=== PATIENT | female | born 1965 | race Caucasian/White ===

== ENCOUNTER 2016-04-29 14:15 | Emergency (ER) | payer OTHER ==
--- NOTE | 2016-04-29 15:33 | DIAGNOSTIC IMAGING REPORT ---
PROCEDURE: CT ABDOMEN/PELVIS W/O CONTRAST INDICATION: Bilateral flank pain and hematuria. TECHNIQUE: Noncontrast axial images were obtained of the entire abdomen and pelvis with sagittal and coronal reformations. COMPARISON: None. FINDINGS: ABDOMEN: No evidence of urinary calculi. No hydronephrosis. Hyperinflation. Lungs are clear. Liver, gallbladder, pancreas, spleen, adrenal glands and abdominal aorta are normal. Severe obstipation. PELVIS: Appendix not identified. Left lower quadrant surgical clips. Hysterectomy. Normal bladder. There is no pelvic mass, inflammatory changes or free fluid. Bones are unremarkable. IMPRESSION: 1. No evidence of urinary calculi or hydronephrosis 2. Severe obstipation 3. Hysterectomy 4. Results discussed with Jyothi Patel All CT scans at this facility use dose modulation, iterative reconstruction, and/or weight-based dosing when appropriate to reduce radiation dose to as low as reasonably achievable.
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
--- NOTE | 2016-04-29 15:55 | ED ORDER SUMMARY ---
..... Patient: CARMELITA UGARTE OrderSheet [facility] VisitID: [id number] [address] [place] [address] 51y, F Registration Date/Time: 04/29/2016 ORDER SHEET Weight: 51.2 kg (stated) Allergies: Haldol, Sulfa Antibiotics, Gluten GENERAL ORDERS: Urine Drug Screen Urgent (14:36 04/29/2016 MWinterer R.N. per protocol) (Ack 14:45 KHoerner) (14:49 MWinterer R.N.) UA-Culture if indicated Urgent (14:36 04/29/2016 MWinterer R.N. per protocol) (Ack 14:45 KHoerner) (14:49 MWinterer R.N.) CT Abd/Pel wo Cont Urgent (14:42 04/29/2016 HBivens A.R.N.P.) (Ack 14:45 oerner) (15:04 MWinterer R.N.) MEDICATION ORDERS: IV FLUIDS: ORDER SHEET NOTES: [Electronically signed by Nanette Prajapati R.N. (16:12 04/29/2016)] [Electronically signed by Jyothi Patel.R.N.P. (16:22 04/29/2016)] [Electronically locked/signed by Nanette Prajapati R.N. (16:12 04/29/2016)]
--- NOTE | 2016-04-29 15:55 | ED ORDER SUMMARY ---
..... Patient: CARMELITA UGARTE OrderSheet [facility] VisitID: [id number] [address] [place] [address] 51y, F Registration Date/Time: 04/29/2016 ORDER SHEET Weight: 51.2 kg (stated) Allergies: Haldol, Sulfa Antibiotics, Gluten GENERAL ORDERS: Urine Drug Screen Urgent (14:36 04/29/2016 MWinterer R.N. per protocol) (Ack 14:45 KHoerner) (14:49 MWinterer R.N.) UA-Culture if indicated Urgent (14:36 04/29/2016 MWinterer R.N. per protocol) (Ack 14:45 KHoerner) (14:49 MWinterer R.N.) CT Abd/Pel wo Cont Urgent (14:42 04/29/2016 HBivens A.R.N.P.) (Ack 14:45 oerner) (15:04 MWinterer R.N.) MEDICATION ORDERS: IV FLUIDS: ORDER SHEET NOTES: [Electronically signed by Nanette Prajapati R.N. (16:12 04/29/2016)] [Electronically signed by Jyothi Patel.R.N.P. (16:22 04/29/2016)] [Electronically locked/signed by Nanette Prajapati R.N. (16:12 04/29/2016)]
--- NOTE | 2016-04-29 15:55 | ED NURSING NOTES ---
Clinical Report - Nurses [facility] [address] [place] [address] 04/29/2016 14:15 Patient: CARMELITA UGARTE TRIAGE Acuity: LEVEL 3. Chief Complaint: RIGHT-SIDED and LEFT-SIDED FLANK PAIN. Alert. No acute distress. SEPSIS SCREEN: Sepsis Screen. Negative (no infection suspected/documented). --14:29 Nanette Prajapati R.N. 14:20 04/29/16. BP: 128/84. HR: 84. RR: 18. O2 saturation: 100% on room air. Temp: 97.8 F (oral). Pain level now: 10/09. --14:29 Nanette Prajapati R.N. Weight: 51.2 kg stated. Height/Length: 66 inches Per Patient. BMI: 18.2. --14:23 Nanette Prajapati R.N. Medications ALPRAZolam Oral. --14:24 Nanette Prajapati R.N. Amphetamine-DEXTROAMPHETAMINE Oral (Tablet 20 mg), 3 x day. --14:24 Nanette Prajapati R.N. Calcium + D Oral. --14:25 Nanette Prajapati R.N. Cranberry-Vitamin C Oral. --14:25 Nanette Prajapati R.N. Diazepam Oral. --14:25 Nanette Prajapati R.N. Fluconazole Oral. --14:25 Nanette Prajapati R.N. Fluticasone Propionate Nasal. --14:25 Nanette Prajapati R.N. Magnesium Oxide Oral. --14:26 Nanette Prajapati R.N. Milk Thistle Oral. --14:26 Nanette Prajapati R.N. Multi Vitamin Daily Oral. --14:26 Nanette Prajapati R.N. Naproxen Oral. --14:26 Nanette Prajapati R.N. OxyCODONE HCl Oral. --14:26 Nanette Prajapati R.N. Sennosides Oral. --14: Nanette Prajapati R.N. Medication/allergy information source: the patient. --14: Nanette Prajapati R.N. Allergies Haldol. --14: Nanette Prajapati R.N. Sulfa Antibiotics. --14: Nanette Prajapati R.N. Gluten. --14: Nanette Prajapati R.N. History Arrived by EMS. Historian: patient. Unaccompanied. Primary physician (Konrad). Onset. (2 months ago). ( Pt reports a bladder infection and flank pain for 2 months.). PAST MEDICAL HX: The patient has had a hysterectomy. SOCIAL HX: Light tobacco smoker (cigarette)- less than 1/2 a pack per day. No alcohol use or drug use. FALL RISK ASSESSMENT: Fall risk assessment completed. No fall risk identified. NUTRITIONAL RISK ASSESSMENT: The nutritional risk assessment revealed no deficiencies. FUNCTIONAL ASSESSMENT: Functional assessment: no impairments noted. LEARNING NEEDS ASSESSMENT: The learning needs assessment revealed no barriers. SKIN INTEGRITY ASSESSMENT: Skin integrity risk assessment completed. No skin integrity risk identified. --14:29 Nanette Prajapati R.N. PROBLEMS: Kidney disease. Meningitis. Bladder Infections. Seizure. --14: Nanette Prajapati R.N. ADDITIONAL SURGERIES: Appendectomy. Brain surgery. Hysterectomy. Kidney surgery. Tonsillectomy. --14: Nanette Prajapati R.N. Assessment GENERAL / NEURO / PSYCH: Alert. Oriented X 4. Appears in no acute distress. July Coma Scale: 15- eyes open spontaneously (4); best verbal response- oriented x 4 (5); best motor response- obeys commands (6). Patient appears calm and cooperative. RESPIRATORY: Respirations not labored. CVS: Capillary refill less than 2 seconds. GI / : Abdomen soft and nontender. SKIN: Mucous membranes are pink. Skin is warm and dry. --14:29 Nanette Prajapati R.N. Interventions ID band on patient. To treatment room. --14: Nanette Prajapati R.N. PHYSICAL ASSESSMENT 14:30 04/29/16. To room via stretcher. GENERAL / NEURO / PSYCH: Alert. Oriented X 4. Appears in no acute distress. HEENT: Mucous membranes are pink. RESPIRATORY: Respirations not labored. CVS: Capillary refill less than 2 seconds. GI / : Abdomen soft and nontender. SKIN: Skin is warm and dry. --14:30 Nanette Prajapati R.N. NURSING PROGRESS NOTES 14:26 04/29/2016 Site #1 started via IV in the right antecubital space with an 20g angiocath, with aseptic technique and good blood return; one attempt. Blood drawn: rainbow set. Labeled in the presence of the patient and sent to the lab. Saline lock flushed with 10 mL saline. --14:31 Nanette Prajapati R.N. 14:30 04/29/16. Patient gowned. Two patient identifiers checked. Call light placed in reach. Side rails up x 1. Bed placed in lowest position. Brakes of bed on. Patient ready for evaluation- chart flagged. --14:30 Nanette Prajapati R.N. 14:37 04/29/16. Checked patient name and birthdate: patient confirmed. Instructions provided to collect clean catch urine and patient verbalized understanding. Clean catch urine collected with return of yellow-colored clear urine; sample sent to lab for urinalysis and drug screen. Specimen labeled in the presence of the patient. --14:37 Nanette Prajapati R.N. 14:49 04/29/16. ( Pt is upset and angry and states to this RN, "I am on the autism spectrum and I am about to lose it. I have had enough of this." This RN explained to pt that she just got here and we are just beginning our work-up. Pt stated "I want to be left alone."). --14:49 Nanette Prajapati R.N. 14:52 04/29/16. Patient walked to CT with tech. (Pt asked if she was willing to do the CT and pt stated she would.). --14:52 Nanette Prajapati R.N. DISPOSITION / DISCHARGE Departure time: 16:05 Apr 29 2016. Condition at departure: unchanged and stable. No learning barriers present. Discharge instructions provided and reviewed with the patient. Patient verbalized understanding. Written instructions provided in [place]. The patient was discharged by the nurse practitioner. She was discharged home. She left the Emergency Department ambulatory. --16:11 Nanette Prajapati R.N. 16:10 04/29/16. BP: deferred. Additional comments: pt refused. --16:11 Nanette Prajapati R.N. 15:57 04/29/2016 Site #1 removed upon discharge. Catheter intact (pt removed her IV site prior to discharge.). --16:12 Nanette Prajpaati R.N. Locked/Released at 04/29/2016 16:12 by Nanette Prajapati R.N.
--- NOTE | 2016-04-29 16:22 | ED MED RECONCILIATION SUMMARY ---
Patient: CARMELITA UGARTE Medication Reconciliation Report [facility] VisitID: [id number] [address] [place] [address] 51y, F Registration Date/Time: 04/29/2016 Weight: 51.2 kg Height/Length: 66 in. BMI: 18.2 ALLERGIES: Gluten, Haldol, Sulfa Antibiotics The patient's Home Medications are listed below: THE FOLLOWING MEDICATIONS NEED TO BE RECONCILED: ALPRAZolam Oral Amphetamine-DEXTROAMPHETAMINE Oral (20 mg), 3 x day Calcium + D Oral Cranberry-Vitamin C Oral Diazepam Oral Fluconazole Oral Fluticasone Propionate Nasal Magnesium Oxide Oral Milk Thistle Oral Multi Vitamin Daily Oral Naproxen Oral OxyCODONE HCl Oral Sennosides Oral The source(s) of the original Home Medication information: patient The following Medications were given to the patient in the Emergency Department: None. The following Medications were prescribed to the patient: None.
--- NOTE | 2016-04-29 16:22 | ED MAR SUMMARY ---
..... Medication Administration Record [facility] [address] [place], [place] [id number] Patient: CARMELITA UGARTE Visit ID: [id number] 51y, F Weight: 51.2 kg Height/Length: 66 in BMI: 18.2 ALLERGIES: Gluten, Sulfa Antibiotics, Haldol
--- NOTE | 2016-04-29 16:22 | ED DISCHARGE INSTRUCTIONS ---
Patient: CARMELITA UGARTE General Instructions [facility] VisitID: [id number] [place] [address] 51y, F Registration Date/Time: 04/29/2016 Acute right and left flank pain Chronic substance abuse- benzodiazepines, narcotics, methamphetamines with intoxication and anxiety. (Obstipation). INSTRUCTIONS Warnings: GENERAL WARNINGS: Return or contact your physician immediately if your condition worsens or changes unexpectedly, if not improving as expected, or if other problems arise. SPECIFICALLY, return if you develop incontinence of urine (loss of bladder control). worsening symptoms. Understanding of the discharge instructions verbalized by patient. Follow-up with: Herberth Roe MD, Urology, , [address] [facility] [place], [id number] Follow up in about three days as needed. Call for an appointment. Summary of care provided to patient. ADDITIONAL INFORMATION Flank Pain[Uncertain Cause] The flank is the area between the upper abdomen and the back. Pain here is often related to the kidneyan infection or a kidney stone. Other causes of flank pain include spinal arthritis, pinched nerve from a disk injury, back muscle strain or spasm. The cause of your flank pain is not certain and further tests may be needed. Home Care: You may use acetaminophen (Tylenol) or ibuprofen (Motrin, Advil) to control pain, unless another medicine was prescribed. [NOTE: If you have chronic liver or kidney disease or ever had a stomach ulcer or GI bleeding, talk with your doctor before using these medicines.] If the cause of your pain is coming from the muscles, ice or heat may give relief. During the first two days after injury, apply an ICE PACK to the painful area for 20 minutes every 2-4 hours. This will reduce swelling and pain. HEAT (hot shower, hot bath or heating pad) works well for muscle spasm. You can start with ice, then switch to heat after two days. Some patients feel best alternating ice and heat treatments. Use the one method that feels the best to you. Follow Up with your doctor or as advised by our staff for further evaluation if your symptoms are not improving over the next few days. Return Promptly or contact your doctor if any of the following occur: Repeated vomiting Fever of 100.4F (38C) or higher, or as directed by your healthcare provider Increasing flank pain Pain that spreads to the front of the abdomen Dizziness, weakness or fainting Blood in your urine Burning with urination or frequent urination Increasing pain in the leg Numbness or weakness in the leg Drug Abuse Use and abuse of such drugs as marijuana, amphetamines (speed, crank), cocaine, heroin or prescription pain medicines (Vicodin, codeine), sedatives and sleeping pills (Valium, Klonopin), PCP, mescaline and LSD may lead to addiction or dependence. Once this occurs, you are at greater risk for any of the following: Craving for the drug and unable to stop using the drug even though you think you want to stop (psychological dependence) Drug withdrawal symptoms if you stop taking the drug (physical dependence) Loss of your job or your family Arrest, conviction and alf sentence for possession of an illegal substance or for driving under the influence of such a substance Accidental injuries to yourself or others while you are under the influence of the drug (in a car or at home). HIV infection (much greater risk if you use IV drugs) Other sexually transmitted diseases (herpes, chlamydia, gonorrhea and others) Severe and fatal infection of the heart valves (if you use IV drugs) Stroke, heart attack, hepatitis B or C, kidney failure from overdose Home Care: Admit you have a drug problem. Ask for help from your family and close friends. Seek professional help. This could be in the form of individual psychotherapy or counseling or an outpatient, inpatient, or residential drug treatment program. Join a self-help group for drug abuse. Avoid friends who abuse drugs themselves or tempt you to continue abusing drugs. Eat a balanced diet and begin a regular exercise program. Follow Up with your doctor or as advised by our staff. Contact one of the resources below for help. National [place] on Alcoholism and Drug Dependence www.ncadd.org 234-986-YPWY Narcotics Anonymous www.na.org 779-218-0073 National Alcohol and Substance Abuse Information Center (for referral to treatment programs) www.addictioncareBetyah.[employer] 397-813-8445 Get Prompt Medical Attention if any of the following occur: Agitation, anxiety, unable to sleep Unintended weight loss (more than 10 to 15 pounds over 3 months) Seizure Chest pain Fever of 100.4F (38C) or higher, or as directed by your healthcare provider Excess drowsiness or inability to be awakened Shortness of breath Slow breathing under 8 breaths per minute Cough with colored sputum Redness, swelling or tenderness at an injection site Opiate Abuse Use and abuse of heroin or prescription pain medicines (Vicodin, codeine) may lead to physical ADDICTION or psychological DEPENDENCE. Once this occurs, you are at greater risk for any of the following: - Craving for the drug and unable to stop using the drug even though you think you want to stop (psychological dependence) - Drug withdrawal symptoms if you stop taking the drug (physical addiction) - Loss of your job or your family - Arrest, conviction and alf sentence for possession of an illegal substance or for driving under the influence of such a substance - Accidental injuries to yourself or others while you are under the influence of the drug (in a car or at home). - HIV infection (much greater risk if you use IV drugs) - Other sexually transmitted diseases (Herpes, chlamydia, gonorrhea and others) - Severe and fatal infection of the heart valves (if you use IV drugs) - Stroke, heart attack, hepatitis B or C, kidney failure - from overdose Home Care: 1) Admit you have a drug problem. Ask for help from your family and close friends. 2) Seek professional help. This could be individual psychotherapy, counseling, or a drug treatment program (outpatient or residential). 3) Join a self-help group for drug abuse. 4) Avoid friends who abuse drugs themselves or tempt you to continue your habit 5) Eat a balanced diet and begin a regular exercise program. Follow Up with your doctor or as advised by our staff. Contact one of the resources below for help. National [place] on Alcoholism and Drug Dependence, www.ncadd.org 523-881-PNZC Narcotics Anonymous (check your phone book for a local listing or call 925-359-4855) www.na.org National Alcohol and Substance Abuse Information Center (for referral to treatment programs) Www.[employer] 935-571-8770 Get Prompt Medical Attention if any of the following occur: -- Symptoms of withdrawal (agitation, anxiety, trembling, sweats, diarrhea, unable to sleep) -- Chest pain -- Unexplained fever over 100.4 F (38.0 C) -- Excessive drowsiness or inability to be awakened -- Slow breathing under 8 breaths per minute -- Shortness of breath or cough with colored sputum -- Redness, swelling or tenderness at an injection site You have been given the following additional information: Flank Pain, Uncertain Cause Drug Abuse Opiate Abuse (Electronically signed by Jyothi Patel A.R.N.P. 04/29/2016 16:22)
--- NOTE | 2016-04-29 16:22 | ED MAR SUMMARY ---
..... Medication Administration Record [facility] [address] [place], [place] [id number] Patient: CARMELITA UGARTE Visit ID: [id number] 51y, F Weight: 51.2 kg Height/Length: 66 in BMI: 18.2 ALLERGIES: Gluten, Sulfa Antibiotics, Haldol
--- NOTE | 2016-04-29 16:22 | ED MED RECONCILIATION SUMMARY ---
Patient: CARMELITA UGARTE Medication Reconciliation Report [facility] VisitID: [id number] [address] [place] [place] [address] 51y, F Registration Date/Time: 04/29/2016 Weight: 51.2 kg Height/Length: 66 in. BMI: 18.2 ALLERGIES: Gluten, Haldol, Sulfa Antibiotics The patient's Home Medications are listed below: THE FOLLOWING MEDICATIONS NEED TO BE RECONCILED: ALPRAZolam Oral Amphetamine-DEXTROAMPHETAMINE Oral (20 mg), 3 x day Calcium + D Oral Cranberry-Vitamin C Oral Diazepam Oral Fluconazole Oral Fluticasone Propionate Nasal Magnesium Oxide Oral Milk Thistle Oral Multi Vitamin Daily Oral Naproxen Oral OxyCODONE HCl Oral Sennosides Oral The source(s) of the original Home Medication information: patient The following Medications were given to the patient in the Emergency Department: None. The following Medications were prescribed to the patient: None.
--- NOTE | 2016-04-29 16:22 | ED DISCHARGE INSTRUCTIONS ---
Patient: CARMELITA UGARTE General Instructions [facility] VisitID: [id number] [place] [address] 51y, F Registration Date/Time: 04/29/2016 Acute right and left flank pain Chronic substance abuse- benzodiazepines, narcotics, methamphetamines with intoxication and anxiety. (Obstipation). INSTRUCTIONS Warnings: GENERAL WARNINGS: Return or contact your physician immediately if your condition worsens or changes unexpectedly, if not improving as expected, or if other problems arise. SPECIFICALLY, return if you develop incontinence of urine (loss of bladder control). worsening symptoms. Understanding of the discharge instructions verbalized by patient. Follow-up with: Herberth Roe MD, Urology, , [address] [facility] [place], [address] Follow up in about three days as needed. Call for an appointment. Summary of care provided to patient. ADDITIONAL INFORMATION Flank Pain[Uncertain Cause] The flank is the area between the upper abdomen and the back. Pain here is often related to the kidneyan infection or a kidney stone. Other causes of flank pain include spinal arthritis, pinched nerve from a disk injury, back muscle strain or spasm. The cause of your flank pain is not certain and further tests may be needed. Home Care: You may use acetaminophen (Tylenol) or ibuprofen (Motrin, Advil) to control pain, unless another medicine was prescribed. [NOTE: If you have chronic liver or kidney disease or ever had a stomach ulcer or GI bleeding, talk with your doctor before using these medicines.] If the cause of your pain is coming from the muscles, ice or heat may give relief. During the first two days after injury, apply an ICE PACK to the painful area for 20 minutes every 2-4 hours. This will reduce swelling and pain. HEAT (hot shower, hot bath or heating pad) works well for muscle spasm. You can start with ice, then switch to heat after two days. Some patients feel best alternating ice and heat treatments. Use the one method that feels the best to you. Follow Up with your doctor or as advised by our staff for further evaluation if your symptoms are not improving over the next few days. Return Promptly or contact your doctor if any of the following occur: Repeated vomiting Fever of 100.4F (38C) or higher, or as directed by your healthcare provider Increasing flank pain Pain that spreads to the front of the abdomen Dizziness, weakness or fainting Blood in your urine Burning with urination or frequent urination Increasing pain in the leg Numbness or weakness in the leg Drug Abuse Use and abuse of such drugs as marijuana, amphetamines (speed, crank), cocaine, heroin or prescription pain medicines (Vicodin, codeine), sedatives and sleeping pills (Valium, Klonopin), PCP, mescaline and LSD may lead to addiction or dependence. Once this occurs, you are at greater risk for any of the following: Craving for the drug and unable to stop using the drug even though you think you want to stop (psychological dependence) Drug withdrawal symptoms if you stop taking the drug (physical dependence) Loss of your job or your family Arrest, conviction and mcc sentence for possession of an illegal substance or for driving under the influence of such a substance Accidental injuries to yourself or others while you are under the influence of the drug (in a car or at home). HIV infection (much greater risk if you use IV drugs) Other sexually transmitted diseases (herpes, chlamydia, gonorrhea and others) Severe and fatal infection of the heart valves (if you use IV drugs) Stroke, heart attack, hepatitis B or C, kidney failure from overdose Home Care: Admit you have a drug problem. Ask for help from your family and close friends. Seek professional help. This could be in the form of individual psychotherapy or counseling or an outpatient, inpatient, or residential drug treatment program. Join a self-help group for drug abuse. Avoid friends who abuse drugs themselves or tempt you to continue abusing drugs. Eat a balanced diet and begin a regular exercise program. Follow Up with your doctor or as advised by our staff. Contact one of the resources below for help. National [place] on Alcoholism and Drug Dependence www.ncadd.org 473-599-OIYY Narcotics Anonymous www.na.org 563-839-4219 National Alcohol and Substance Abuse Information Center (for referral to treatment programs) www.addictioncareAkustica.[employer] 397-670-6788 Get Prompt Medical Attention if any of the following occur: Agitation, anxiety, unable to sleep Unintended weight loss (more than 10 to 15 pounds over 3 months) Seizure Chest pain Fever of 100.4F (38C) or higher, or as directed by your healthcare provider Excess drowsiness or inability to be awakened Shortness of breath Slow breathing under 8 breaths per minute Cough with colored sputum Redness, swelling or tenderness at an injection site Opiate Abuse Use and abuse of heroin or prescription pain medicines (Vicodin, codeine) may lead to physical ADDICTION or psychological DEPENDENCE. Once this occurs, you are at greater risk for any of the following: - Craving for the drug and unable to stop using the drug even though you think you want to stop (psychological dependence) - Drug withdrawal symptoms if you stop taking the drug (physical addiction) - Loss of your job or your family - Arrest, conviction and mcc sentence for possession of an illegal substance or for driving under the influence of such a substance - Accidental injuries to yourself or others while you are under the influence of the drug (in a car or at home). - HIV infection (much greater risk if you use IV drugs) - Other sexually transmitted diseases (Herpes, chlamydia, gonorrhea and others) - Severe and fatal infection of the heart valves (if you use IV drugs) - Stroke, heart attack, hepatitis B or C, kidney failure - from overdose Home Care: 1) Admit you have a drug problem. Ask for help from your family and close friends. 2) Seek professional help. This could be individual psychotherapy, counseling, or a drug treatment program (outpatient or residential). 3) Join a self-help group for drug abuse. 4) Avoid friends who abuse drugs themselves or tempt you to continue your habit 5) Eat a balanced diet and begin a regular exercise program. Follow Up with your doctor or as advised by our staff. Contact one of the resources below for help. National [place] on Alcoholism and Drug Dependence, www.ncadd.org 152-872-LTQO Narcotics Anonymous (check your phone book for a local listing or call 186-367-1174) www.na.org National Alcohol and Substance Abuse Information Center (for referral to treatment programs) Www.[employer] 251-267-4662 Get Prompt Medical Attention if any of the following occur: -- Symptoms of withdrawal (agitation, anxiety, trembling, sweats, diarrhea, unable to sleep) -- Chest pain -- Unexplained fever over 100.4 F (38.0 C) -- Excessive drowsiness or inability to be awakened -- Slow breathing under 8 breaths per minute -- Shortness of breath or cough with colored sputum -- Redness, swelling or tenderness at an injection site You have been given the following additional information: Flank Pain, Uncertain Cause Drug Abuse Opiate Abuse (Electronically signed by Jyothi Patel A.R.N.P. 04/29/2016 16:22)
== END 2016-04-29 16:05 | disposition home or self-care (01) ==
LOC: ED SRH 14:15
DX: R10.32 Left lower quadrant pain (principal); F15.129 Other stimulant abuse with intoxication, unspecified; F15.180 Other stimulant abuse with stimulant-induced anxiety disorder
CPT/HCPCS: 90004; 92760; 92761; 92762; 92763; 92764; 92765; 92766; 92767